=== PATIENT | male | born 1980 | race Caucasian/White ===

== ENCOUNTER 2016-10-28 13:50 | Emergency (ER) | payer MEDICAID ==
[~2016-10-28] VITALS: Ht 165.1 cm; Wt 86.2 kg
[2016-10-28 14:00] VITALS: BP 129/71
[2016-10-28] MEDS ORDERED: ANTACID PO (14:06)
== END 2016-10-28 14:50 | disposition home or self-care (01) ==
LOC: M ED 14:35
DX: Z77.098 Contact with and (suspected) exposure to other hazardous, chiefly nonmedicinal, chemicals (principal); R07.0 Pain in throat; R06.02 Shortness of breath; Z86.14 Personal history of Methicillin resistant Staphylococcus aureus infection